=== PATIENT | female | born 1990 | race African-American/Black ===

== ENCOUNTER 2017-01-06 21:55 | Emergency (ER) | payer SELFPAY ==
[~2017-01-06] VITALS: Ht 167.6 cm; Wt 58.0 kg
[~2017-01-06 21:55] MED LIST: NAPR500 PO
[2017-01-06 22:01] VITALS: BP 104/79; PULSE 94; RESP 20; TEMP 98.9; O2SAT 100
[2017-01-06] MEDS ORDERED: NAPR500T PO (22:12)
[2017-01-06] MEDS ORDERED: ROBA500T PO (22:12)
[2017-01-06] MEDS ORDERED: ORPHENADRINE INJ 60 MG/2 ML AMP IM ONE (22:15)
[2017-01-06] MEDS ORDERED: KETOROLAC TROMETHAMINE 60 MG/2 ML (IM) VIAL IM ONE (22:15)
--- NOTE | 2017-01-06 22:18 | PD ---
HPI Chief Complaint: Pain: Acute or Chronic Time Seen by Provider: 22:12 Travel History International Travel<30 days: No Contact w/Intl Traveler<30days: No Traveled to known affect area: No History of Present Illness HPI 26-year-old female presents to the emergency department for evaluation of left upper back and left shoulder pain that began earlier this morning. The patient states that she was working overnight at [employer] and was doing lifting and pulling of shelves. States that at the end of her shift last night she noticed that she had pain in her left upper back radiating to her left shoulder and the left side of her neck. States that it feels "as though there is a hard knot." Pain is aggravated with movement of her left shoulder. Denies any alleviating factors. Denies weakness, numbness or tingling, traumatic injury. She is not taking anything for symptoms so far. Denies , last menstrual period 1 week ago. No other complaints. PFSH Past Medical History Medical History: Denies Significant Hx Diminished Hearing: No Immunizations Current: Yes Tetanus Vaccination: < 5 Years Influenza Vaccination: No ?: Not LMP: 1 WEEK : 0 Past Surgical History Surgical History: No Previous Surgery Social History Alcohol Use: Yes (RARE OCCASIONS) Tobacco Use: Yes (1/2 PK A DAY) Substance Use: No Allergies-Medications (Allergen,Severity, Reaction): Coded Allergies: No Known Allergies (Verified , 01/06/17) Reported Meds & Prescriptions Reported Meds & Active Scripts Active No Active Prescriptions or Reported Medications Review of Systems Except as stated in HPI: all other systems reviewed are Neg Physical Exam Narrative GENERAL: Well-nourished and well-developed pleasant patient in no acute distress who is nontoxic appearing. SKIN: Warm and dry. HEAD: Normocephalic and atraumatic. EYES: No injection, drainage, or hyphema noted. PERRLA. EOMI. ENT: No nasal drainage noted. Oropharynx is clear. NECK: Supple and the trachea is midline. CARDIOVASCULAR: Regular rate and rhythm. RESPIRATORY: Breath sounds are equal bilaterally with no accessory muscle use, wheezing, rhonchi, or crackles. MUSCULOSKELETAL: Patient has decreased range of motion in the left shoulder secondary to pain elicited in the left upper back, she is able to lift her left shoulder to 90. Radial pulses are 2+ bilaterally. Stranner strength is intact. Capillary refill is within normal limits. No obvious deformities, swelling, cyanosis, or ecchymosis is present throughout the upper and lower extremities. Patient has full range of motion in all other extremities without any signs of neurovascular compromise. BACK: Tenderness to palpation of left thoracic paraspinal muscles, tenderness just medial to the scapula. No obvious deformities, midline bony point tenderness, or crepitus noted throughout the thoracic and lumbar vertebrae. NEUROLOGICAL: Awake, alert, and oriented. Normal speech and gait. Cranial nerves are grossly intact. Data Data Last Documented VS Vital Signs Date Time Temp Pulse Resp B/P Pulse Ox O2 Delivery O2 Flow Rate FiO2 01/06/17 22:01 98.9 94 20 104/79 100 Orders Ketorolac Inj (Toradol Inj) (01/06/17 22:15) Orphenadrine Inj (Norflex Inj) (01/06/17 22:15) [facility] Medical Decision Making Medical Screen Exam Complete: Yes Emergency Medical Condition: Yes Differential Diagnosis Muscle strain versus muscle spasm versus sprain versus discogenic pain Narrative Course 26-year-old female presents to the emergency department for evaluation of left upper back and left shoulder pain after pulling and lifting shelves at work last night. Patient is afebrile, vital signs are stable. History and physical examination consistent with muscle strain and muscle spasm. No red flag signs or symptoms. Patient will be administered Toradol 60 mg IM and Norflex 60 mg IM. She'll be discharged with naproxen and Robaxin. Discussed supportive care. Advised follow-up with her PCP. Patient verbalizes understanding and agreement with treatment plan. Diagnosis Primary Impression: Muscle strain of left upper back Qualified Code: S29.012A - Muscle strain of left upper back, initial encounter Referrals: Primary Care Physician Patient Instructions: General Instructions, Muscle Strain (ED) Additional Instructions: Rest. Perform gentle stretches. Apply ice or heat to help alleviate symptoms. Take medications as prescribed with food and a full glass of water. Do not take Robaxin with alcohol or while driving. Follow-up with your Primary Care Physician. Return to the ED for any acute worsening of symptoms. Med/Other Pt SpecificInfo: Prescription(s) given Scripts Methocarbamol (Robaxin)500 Mg [id number] Mg PO QID 5 Days Ref 0 Prov:Young Edwards MD 5/4/17 Naproxen 500 Mg [id number] Mg PO BID 7 Days Ref 0 Prov:Young Edwards MD 01/06/17 Disposition: 01 DISCHARGE HOME Condition: Stable Chinyere Lundberg January 06, 2017 22:18
== END 2017-01-06 22:30 | disposition home or self-care (01) ==
LOC: PHEFT 21:55
DX: S29.012A Strain of muscle and tendon of back wall of thorax, initial encounter (principal); M25.512 Pain in left shoulder; F17.210 Nicotine dependence, cigarettes, uncomplicated; X50.0XXA Overexertion from strenuous movement or load, initial encounter; Y93.89 Activity, other specified; Y92.512 Supermarket, store or market as the place of occurrence of the external cause; Y99.0 Civilian activity done for income or pay
CPT/HCPCS: 96372; 99283; J1885; J2360

== ENCOUNTER 2017-10-08 11:35 | Emergency (ER) | payer SELFPAY ==
[~2017-10-08] VITALS: Ht 167.6 cm; Wt 57.0 kg
[~2017-10-08 11:35] MED LIST changes: -NAPR500 PO; +NAPR500T2 PO; +ROBA500T PO
[2017-10-08 11:39] VITALS: BP 124/61; PULSE 87; RESP 16; TEMP 98.9; O2SAT 98
[2017-10-08 11:50] VITALS: BP 116/72; PULSE 89; RESP 18; O2SAT 100
[2017-10-08] MEDS ORDERED: KETOROLAC TROMETHAMINE 60 MG/2 ML (IM) VIAL IM ONE (12:00)
[2017-10-08] MEDS ORDERED: TRAM50TA PO (12:01)
--- NOTE | 2017-10-08 12:08 | PD ---
HPI Chief Complaint: Syncope/Near-Syncope Time Seen by Provider: 11:53 Travel History International Travel<30 days: No Contact w/Intl Traveler<30days: No Traveled to known affect area: No History of Present Illness HPI The patient was seen and examined in the presence of the nurse. Patient has history of migraines. She complains of migraine headache. Has bilateral frontal throbbing. No thunderclap onset. No head injury or fever. She also complains of cough and congestion and runny nose. Denies fever symptoms severity is mild to moderate PFSH Past Medical History Medical History: Denies Significant Hx Diminished Hearing: No Immunizations Current: Yes Tetanus Vaccination: < 5 Years Influenza Vaccination: No ?: Not LMP: 09/15/17 : 0 Past Surgical History Surgical History: No Previous Surgery Social History Alcohol Use: Yes (RARE OCCASIONS) Tobacco Use: Yes (1/2 PK A DAY) Substance Use: No Allergies-Medications (Allergen,Severity, Reaction): Coded Allergies: No Known Allergies (Verified Adverse Reaction, Unknown, 10/08/17) Reported Meds & Prescriptions Reported Meds & Active Scripts Active Tramadol (Tramadol HCl) 50 Mg Tab 50 Mg PO Q6H PRN Review of Systems General / Constitutional: No: Fever HENT: Positive: Headaches Cardiovascular: No: Chest Pain or Discomfort Respiratory: No: Cough Gastrointestinal: No: Vomiting Physical Exam Narrative GENERAL: Well-nourished, well-developed patient in no apparent distress. SKIN: Focused skin assessment reveals no rash and nodules. Skin is Warm and dry. HEAD: Atraumatic. Normocephalic. EYES: Pupils equal and round. No scleral icterus. No injection or drainage. ENT: No nasal bleeding or discharge. Mucous membranes pink and moist. NECK: Trachea midline. No JVD. CARDIOVASCULAR: Regular rate and rhythm. No murmur appreciated. RESPIRATORY: No accessory muscle use. Clear to auscultation. Breath sounds equal bilaterally. GASTROINTESTINAL: Abdomen soft, non-tender, nondistended. Hepatic and splenic margins not palpable. MUSCULOSKELETAL: No obvious deformities. No clubbing. No cyanosis. No edema. NEUROLOGICAL: Awake and alert. No obvious cranial nerve deficits. Motor grossly within normal limits. Normal speech. PSYCHIATRIC: Appropriate mood and affect; insight and judgment normal. Data Data Last Documented VS Vital Signs Date Time Temp Pulse Resp B/P (MAP) Pulse Ox O2 Delivery O2 Flow Rate FiO2 10/08/17 11:50 89 18 116/72 (87) 100 Room Air 10/08/17 11:39 98.9 Orders Orders Ketorolac Inj (Toradol Inj) (10/08/17 12:00) [facility] Medical Decision Making Medical Screen Exam Complete: Yes Emergency Medical Condition: Yes Medical Record Reviewed: Yes Differential Diagnosis Migraine, flu syndrome, bronchitis Narrative Course I have reviewed the patient's electronic medical record. I gave her Toradol injection She is neurologically intact with no meningeal signs. Presentation not consistent with subarachnoid hemorrhage Wrote her 10 tramadol to use as needed Diagnosis Primary Impression: Migraine headache Qualified Codes: G43.009 - Migraine without aura, not intractable, without status migrainosus Additional Impression: Acute viral syndrome Additional Instructions: The patient was advised to follow up with their physician and return if they worsen. The patient was warned about potential sedation for the medications they will receive on prescription. Med/Other Pt SpecificInfo: Prescription(s) given Scripts Tramadol (Tramadol) 50 Mg Tab 50 MG PO Q6H Y for PAIN, #10 TAB 0 Refills Prov: Clay Cameron MD 10/08/17 Disposition: 01 DISCHARGE HOME Condition: Stable Clay Cameron MD Oct 08, 2017 12:08
== END 2017-10-08 12:55 | disposition home or self-care (01) ==
LOC: PHED 11:35
DX: G43.909 Migraine, unspecified, not intractable, without status migrainosus (principal); B34.9 Viral infection, unspecified; F17.200 Nicotine dependence, unspecified, uncomplicated
CPT/HCPCS: 96372; 99283; J1885

== ENCOUNTER 2017-11-13 21:21 | Observation (INO) | payer SELFPAY ==
[~2017-11-13] VITALS: Ht 162.6 cm; Wt 57.0 kg
[~2017-11-13 21:21] MED LIST changes: -NAPR500T2 PO; -ROBA500T PO; +TRAM50TA PO
[2017-11-13 21:25] VITALS: BP 106/69; PULSE 64; RESP 18; TEMP 97.6; O2SAT 99
[2017-11-13] MEDS ORDERED: SODIUM CHLOR 0.9% 1000 ML INJ 1,000 ML IV ONE (22:45)
[2017-11-13 23:23] LABS: BACTERIA, URINE RARE /hpf; BILIRUBIN, URINE NEG (NEG); BLOOD, URINE NEG (NEG); GLUCOSE,URINE NEG (NEG); KETONE, URINE NEG (NEG); MUCUS URINE MANY /lpf (OCC); NITRITE,URINE NEG (NEG); SQUAMOUS EPITHELIAL CELL URINE 30 /hpf (0-5); TRANSITIONAL EPI CELLS, URINE <1 /hpf; URINE COLOR YELLOW (YELLW/STRAW); URINE LEUKOCYTE ESTERASE MOD (NEG)
[2017-11-13 23:26] LABS: AUTOMATED NEUTROPHIL # 7.8 TH/MM3 (1.8-7.7); BASOPHIL # 0.1 TH/MM3 (0-0.2); BASOPHIL % 0.5 % (0.0-2.0); EOSINOPHIL # 0.1 TH/MM3 (0-0.4); EOSINOPHIL % 0.5 % (0.0-4.0); HEMATOCRIT 38.3 % (35.0-46.0); HEMOGLOBIN 12.7 GM/DL (11.6-15.3); LYMPHOCYTE # 2.2 TH/MM3 (1.0-4.8); MEAN CELL VOLUME 86.8 FL (80.0-100.0); MEAN CORPUSCULAR HEMOGLOBIN 28.7 PG (27.0-34.0); MEAN CORPUSCULAR HGB CONC 33.1 % (32.0-36.0); MEAN PLATELET VOLUME 8.8 FL (7.0-11.0); MONO % 7.5 % (0.0-8.0); MONOCYTE # 0.8 TH/MM3 (0-0.9); NEUT % 71.5 % (16.0-70.0); PLATELET COUNT 243 TH/MM3 (150-450); RED BLOOD COUNT 4.41 MIL/MM3 (4.00-5.30); RED CELL DISTRIBUTION WIDTH 14.9 % (11.6-17.2); WHITE BLOOD COUNT 10.9 TH/MM3 (4.0-11.0)
[2017-11-13 23:37] LABS: ALBUMIN 4.3 GM/DL (3.4-5.0); AST (GOT) 11 U/L (15-37); BICARBONATE 24.5 MEQ/L (21.0-32.0); BLOOD UREA NITROGEN 14 MG/DL (7-18); CALCIUM 9.5 MG/DL (8.5-10.1); CHLORIDE 104 MEQ/L (98-107); CREATININE 0.98 MG/DL (0.50-1.00); GLOMERULAR FILTRATION RATE 83 ML/MIN (>89); GLUCOSE,RANDOM 89 MG/DL (74-106); SODIUM (NA) 136 MEQ/L (136-145)
[2017-11-13 23:38] LABS: ALT (GPT) 18 U/L (10-53)
[2017-11-13 23:40] LABS: ALKALINE PHOSPHATASE 59 U/L (45-117); TOTAL BILIRUBIN ADULT 0.3 MG/DL (0.2-1.0); TOTAL PROTEIN 8.4 GM/DL (6.4-8.2)
--- NOTE | 2017-11-13 23:46 | RADRPT ---
EXAM DATE/TIME: 11/13/2017 23:27 [facility] COMPARISON: No previous studies available for comparison. INDICATIONS : Near syncopal episode today. Left sided chest pain. MEDICAL HISTORY : Current smoker. SURGICAL HISTORY : None. ENCOUNTER: Initial ACUITY: 1 day PAIN SCORE: 9/10 LOCATION: Left chest FINDINGS: A single view of the chest demonstrates the lungs to be symmetrically aerated without evidence of mas s, infiltrate or effusion. The cardiomediastinal contours are unremarkable. Osseous structures are intact. CONCLUSION: Normal examination. Derik Velasco Jr., MD on November 13, 2017 at 23:44 Board Certified Radiologist. This report was verified electronically.
--- NOTE | 2017-11-13 23:49 | PD ---
HPI Chief Complaint: Syncope/Near-Syncope Time Seen by Provider: 22:30 Travel History International Travel<30 days: No Contact w/Intl Traveler<30days: No Traveled to known affect area: No History of Present Illness HPI The patient is a 26 year old female who presents to the [facility] emergency department with a history of dizziness with lightheaded sensation that has been recurrent throughout the day. She denies any syncope today, however she reports having syncope in the past. When asked how many times, she reports "too many times to count". She denies every being evaluated for syncope previously. She reports having daily chest pain. She is unsure how long ago this began. She reports that she has had chest pain for as long as she can remember. She denies any SOB. She denies any nausea, vomiting, or diarrhea. A review of systems otherwise, the patient denies having any recent fevers, cough or congestion, neck pain, abdominal pain, urinary symptoms, or neurologic symptoms. LMP:11/02/16 [facility] Past Medical History Narrative Medical The patient's past medical history is significant for none. Medical History: Denies Significant Hx Diminished Hearing: No Immunizations Current: Yes Tetanus Vaccination: < 5 Years Influenza Vaccination: No ?: Not : 0 Past Surgical History Surgical History: No Previous Surgery Social History Alcohol Use: Yes (RARE OCCASIONS) Tobacco Use: Yes (1/2 PK A DAY) Substance Use: No Allergies-Medications (Allergen,Severity, Reaction): Coded Allergies: No Known Allergies (Verified Adverse Reaction, Unknown, 11/13/17) Reported Meds & Prescriptions Reported Meds & Active Scripts Active Tramadol (Tramadol HCl) 50 Mg Tab 50 Mg PO Q6H PRN Review of Systems Except as stated in HPI: all other systems reviewed are Neg General / Constitutional: No: Fever Eyes: No: Visual changes HENT: Positive: Lightheadedness, No: Headaches, Congestion, Neck Stiffness, Neck Pain Cardiovascular: Positive: Chest Pain or Discomfort, Syncope, No: Dyspnea on exertion Respiratory: No: Cough, Shortness of Breath Gastrointestinal: No: Abdominal Pain Genitourinary: No: Dysuria Musculoskeletal: No: Pain Skin: No Rash Neurologic: Positive: Syncope, No: Weakness, Focal Abnormalities, Change in Mentation, Slurred Speech, Sensory Disturbance Psychiatric: No: Depression Endocrine: No: Polydipsia Hematologic/Lymphatic: No: Easy Bruising Physical Exam Narrative General: The patient is a well-developed well-nourished female in no acute distress. Head and Neck exam: Head is normocephalic atraumatic. Eyes: EOMI, pupils are equal round and reactive to light. Nose: Midline septum with pink mucous membranes Mouth: Dentition unremarkable. Moist mucus membranes. Posterior oropharynx is not erythematous. No tonsillar hypertrophy. Uvula midline. Airway patent. Neck: No palpable lymphadenopathy. No nuchal rigidity. No thyromegaly. Cardiovascular: Regular rate and rhythm without murmurs, gallops, or rubs. No pulse deficit to the extremities on simultaneous auscultation and palpation of her radial artery. Lungs: Clear to auscultation bilaterally. No wheezes, rhonchi, or rales. Abdomen: Soft, without tenderness to palpation in all 4 quadrants of the abdomen. No guarding, rebound, or rigidity. Normal bowel sounds are audible. No tenderness on palpation of McBurney's point. Extremities: No clubbing, cyanosis, or edema. 2+ pulses in all 4 extremities. No calf tenderness on palpation. Back: No spinous process tenderness to palpation. No costovertebral angle tenderness to palpation. Neurologic Exam: Grossly nonfocal Skin Exam: No rash noted. Intact skin that is warm and dry. Data Data Last Documented VS Vital Signs Date Time Temp Pulse Resp B/P (MAP) Pulse Ox O2 Delivery O2 Flow Rate FiO2 11/13/17 21:25 97.6 64 18 106/69 (81) 99 Orders Orders Electrocardiogram (11/13/17 22:31) Complete Blood Count With Diff (11/13/17 22:31) Comprehensive Metabolic Panel (11/13/17 22:31) Urinalysis - C+S If Indicated (11/13/17 22:31) Magnesium (Mg) (11/13/17 22:31) Iv Access Insert/Monitor (11/13/17 22:31) Ecg Monitoring (11/13/17 22:31) Oximetry (11/13/17 22:31) Orthostatic Vital Signs (11/13/17 22:31) Ed Urine Pregnancytest Poc (11/13/17 22:31) Sodium Chlor 0.9% 1000 Ml Inj (Ns 1000 M (11/13/17 22:45) Creatine Kinase (Cpk) (11/13/17 23:00) Ckmb (Isoenzyme) Profile (11/13/17 23:00) Troponin I (11/13/17 23:00) B-Type Natriuretic Peptide (11/13/17 23:00) Prothrombin Time / Inr (Pt) (11/13/17 23:00) Act Partial Throm Time (Ptt) (11/13/17 23:00) Thyroid Stimulating Hormone (11/13/17 23:00) Ct Brain W/O Iv Contrast(Rout) (11/13/17 23:00) Chest, Single Ap (11/13/17 23:03) CKMB (11/13/17 23:05) CKMB% (11/13/17 23:05) Admit Order (Ed Use Only) (11/14/17 01:53) Labs Laboratory Tests Test 11/13/17 23:00 11/13/17 23:05 Urine Color YELLOW Urine Turbidity HAZY Urine pH 7.0 Urine Specific [place] 1.024 Urine Protein TRACE mg/dL Urine Glucose (UA) NEG mg/dL Urine Ketones NEG mg/dL Urine Occult Blood NEG Urine Nitrite NEG Urine Bilirubin NEG Urine Urobilinogen LESS THAN 2.0 MG/DL Urine Leukocyte Esterase MOD Urine RBC 4 /hpf Urine WBC 7 /hpf Urine Squamous Epithelial Cells 30 /hpf Urine Transitional Epithelial Cells <1 /hpf Urine Bacteria RARE /hpf Urine Granular Casts 3 /lpf Urine Mucus MANY /lpf Microscopic Urinalysis Comment CULT NOT INDICATED White Blood Count 10.9 TH/MM3 Red Blood Count 4.41 MIL/MM3 Hemoglobin 12.7 GM/DL Hematocrit 38.3 % Mean Corpuscular Volume 86.8 FL Mean Corpuscular Hemoglobin 28.7 PG Mean Corpuscular Hemoglobin Concent 33.1 % Red Cell Distribution Width 14.9 % Platelet Count 243 TH/MM3 Mean Platelet Volume 8.8 FL Neutrophils (%) (Auto) 71.5 % Lymphocytes (%) (Auto) 20.0 % Monocytes (%) (Auto) 7.5 % Eosinophils (%) (Auto) 0.5 % Basophils (%) (Auto) 0.5 % Neutrophils # (Auto) 7.8 TH/MM3 Lymphocytes # (Auto) 2.2 TH/MM3 Monocytes # (Auto) 0.8 TH/MM3 Eosinophils # (Auto) 0.1 TH/MM3 Basophils # (Auto) 0.1 TH/MM3 CBC Comment DIFF FINAL Differential Comment Blood Urea Nitrogen 14 MG/DL Creatinine 0.98 MG/DL Random Glucose 89 MG/DL Total Protein 8.4 GM/DL Albumin 4.3 GM/DL Calcium Level 9.5 MG/DL Magnesium Level 2.0 MG/DL Alkaline Phosphatase 59 U/L Aspartate Amino Transf (AST/SGOT) 11 U/L Alanine Aminotransferase (ALT/SGPT) 18 U/L Total Bilirubin 0.3 MG/DL Sodium Level 136 MEQ/L Potassium Level 4.1 MEQ/L Chloride Level 104 MEQ/L Carbon Dioxide Level 24.5 MEQ/L Anion Gap 8 MEQ/L Estimat Glomerular Filtration Rate 83 ML/MIN Total Creatine Kinase 110 U/L Creatine Kinase MB LESS THAN 0.5 NG/ML Troponin I LESS THAN 0.02 NG/ML B-Type Natriuretic Peptide LESS THAN 2 PG/ML Thyroid Stimulating Hormone 3rd Gen 1.500 uIU/ML MDM Medical Decision Making Medical Screen Exam Complete: Yes Emergency Medical Condition: Yes Medical Record Reviewed: Yes Interpretation(s) Last Impressions Chest X-Ray 11/13/[id number] Signed Impressions: Service Date/Time: Monday, November 13, 2017 23:27 - CONCLUSION: Normal examination. Derik Velasco Jr., MD Head CT [id number] Signed Impressions: Service Date/Time: Tuesday, November 14, 2017 00:10 - CONCLUSION: Normal examination. Derik Velasco Jr., MD Differential Diagnosis Acute coronary syndrome, versus vasovagal syncope, versus orthostasis, versus anxiety disorder, versus pneumothorax Narrative Course During the course of the patient's emergency department visit, the patient's history, examination, and differential diagnosis were reviewed with the patient. The patient was placed on a surveillance monitor with oximetry and frequent blood pressure monitoring. The patient had IV access obtained and blood work sent for analysis. The patient had an EKG done on arrival. The patient's EKG shows a sinus rhythm heart rate of 63, QRS duration 94 ms, QTC [address] segment elevation. A bedside test was done and negative. The patient was initially provided normal saline 1 L IV fluid bolus. Aspirin 324 mg p.o. 1. The patient's laboratory studies were reviewed and remarkable for a white count of 10.9, hemoglobin 12.7, platelets 243 with neutrophils 71.5. CMP is remarkable for GFR of 83, AST is 11, total protein 8.4, cardiac enzymes within normal limits, TSH 1.5, PT PTT within normal, urinalysis is unremarkable, culture not indicated Radiology studies were reviewed and remarkable for chest x-ray that shows no acute abnormality. A CT scan of the brain that shows no acute abnormality. Given the patient's recurrent chest pain for as long as she can remember with no prior workup, the patient was agreeable with the plan to proceed with admission to the chest pain center for rule out serial cardiac enzyme protocol followed by consideration of stress testing. The patient's results were discussed with the patient, including the plan of care. I explained that further testing and/ or monitoring is indicated based on the patient's history, examination, and/ or laboratory findings. Therefore, I recommended admission for additional evaluation. The patient expressed understanding and was agreeable with this plan. The patient was admitted to the hospital in stable condition and sent to a bed under the care of chest pain center. Diagnosis Primary Impression: Chest pain, rule out acute myocardial infarction Admitting Information Admitting Physician Requests: Gudelia Antonio MD Nov 13, 2017 23:49
--- NOTE | 2017-11-14 00:21 | RADRPT ---
EXAM DATE/TIME: 11/14/2017 00:10 [facility] COMPARISON: No previous studies available for comparison. INDICATIONS : Syncope. RADIATION DOSE: 39.41 CTDIvol (mGy) MEDICAL HISTORY : None SURGICAL HISTORY : None. ENCOUNTER: Initial ACUITY: 1 day PAIN SCALE: 0/10 LOCATION: cranial TECHNIQUE: Multiple contiguous axial images were obtained of the head. Using automated exposure control and adj ustment of the mA and/or kV according to patient size, radiation dose was kept as low as reasonably a chievable to obtain optimal diagnostic quality images. DICOM format image data is available electro nically for review and comparison. FINDINGS: CEREBRUM: The ventricles are normal for age. No evidence of midline shift, mass lesion, hemorrhage or acute in farction. No extra-axial fluid collections are seen. POSTERIOR FOSSA: The cerebellum and brainstem are intact. The 4th ventricle is midline. The cerebellopontine angle i s unremarkable. EXTRACRANIAL: The visualized portion of the orbits is intact. SKULL: The calvaria is intact. No evidence of skull fracture. CONCLUSION: Normal examination. Derik Velasco Jr., MD on November 14, 2017 at 0:19 Board Certified Radiologist. This report was verified electronically.
[2017-11-14 01:27] LABS: TROPONIN I LESS THAN 0.02 NG/ML (0.02-0.05)
[2017-11-14 02:00] VITALS: BP 118/64; PULSE 91; RESP 16; O2SAT 98
[2017-11-14] MEDS ORDERED: ASPIRIN 81 MG CHEW TAB CHEW ONE (02:45)
[2017-11-14 02:54] VITALS: RESP 16; O2SAT 100
[2017-11-14 03:14] LABS: INTERNATIONAL NORMALIZED RATIO 1.1 RATIO; PROTHROMBIN TIME - PATIENT 11.4 SEC (9.8-11.6)
[2017-11-14] MEDS ORDERED: SODIUM CHLORIDE 0.9% FLUSH 10 ML FLUSH IV FLUSH PRN (04:15)
[2017-11-14] MEDS ORDERED: ACETAMINOPHEN 500 MG CPLT PO PRN (04:15)
[2017-11-14 06:00] VITALS: BP 111/67; PULSE 85; RESP 14; O2SAT 99
[2017-11-14 06:22] LABS: TROPONIN I LESS THAN 0.02 NG/ML (0.02-0.05)
--- NOTE | 2017-11-14 08:15 | HHI.HP ---
HPI Primary Care Physician No Primary Care Physician Chief Complaint I passed out History of Present Illness This is a 26-year-old female that presents to ED with complaint of "I passed out." States this occurred while in the friend's room. States her friend was admitted to this hospital and she was visiting her when this occurred. The ER note states that she had no syncope and that she has felt dizzy and lightheaded throughout the day. Patient states to me that she has 3-4 syncopal episodes per month and has done so since she has been a kid. Has never sought treatment for this. She also has chest pains at least twice a week and has done so for the past 10 years. States the pain is on the right side. States that shooting pain that will last no longer than 5 minutes. Found nothing in particular to bring the symptoms on. Denies shortness of breath nausea or diaphoresis. Denies sensation of heart beating irregularly. States at times it is felt as if her heart was beating rapid after the syncopal episode but not prior to it. Denies headache. Denies numbness tingling weakness in extremities. Denies recent travel. Denies calf pain or swelling. Denies seizure activity. Denies recent illness. Denies . Denies illicit drug use. Admits to not drinking much water. States she may have some juice throughout the day but does not drink water that much. Review of Systems General: Patient denies fevers, chills, and recent travel HEENT: Patient denies headache, sore throat, difficulty swallowing. Cardiovascular: Has the chest discomfort as mentioned above. Denies sensation of heart beating rapidly or irregularly with her most recent syncopal episode however at times her heart rate seems to beating fast after the syncopal episode but has never checked the heart rate.. States she had a syncopal episode yesterday while visiting her friend at the hospital. Respiratory: Denies shortness of breath or inspirational chest discomfort. Denies coughing wheezing or hemoptysis. GI: Patient denies nausea, vomiting, diarrhea, abdominal pain, bloody stools. Musculoskeletal: Patient denies joint pain or edema. Denies calf pain or edema. Neurovascular: Patient denies numbness, tingling, weakness in extremities. Denies headache. At times feels dizzy. Denies seizure activity. Denies head injury with yesterday's episode. Endocrine: Denies polyuria and polydipsia. Hematologic: Denies easy bruising. Skin: Denies rash or itching. Past Family Social History Allergies: Coded Allergies: No Known Allergies (Verified Adverse Reaction, Unknown, 11/13/17) Past Medical History Tobacco abuse. Denies hypertension, hyperlipidemia, diabetes, and CAD. Past Surgical History Denies prior surgeries. Reported Medications Reported Meds & Active Scripts Active Tramadol (Tramadol HCl) 50 Mg Tab 50 Mg PO Q6H PRN Active Ordered Medications Current Medications Medications (Trade) Dose Ordered Sig/Bhavya Route Start Time Stop Time Status Last Admin (NS Flush) 2 ml UNSCH PRN IV FLUSH 11/14/17 04:15 (NS Flush) 2 ml BID IV FLUSH 11/14/17 09:00 (Tylenol) 500 mg Q4H PRN PO 11/14/17 04:15 Family History Denies family history of CAD. Social History Smokes 3-4 cigarettes per day for the last 7 years. Has had no alcohol for 3 years. Denies illicit drugs. Currently unemployed. Physical Exam Vital Signs Vital Signs Date Time Temp Pulse Resp B/P (MAP) Pulse Ox O2 Delivery O2 Flow Rate FiO2 11/14/17 06:00 85 14 111/67 (82) 99 Room Air 11/14/17 02:54 16 100 Room Air 11/14/17 02:00 91 16 118/64 (82) 98 11/13/17 21:25 97.6 64 18 106/69 (81) 99 Physical Exam GENERAL: Patient was examined in the presence of a female nurse sweat band sewer. This is a well-nourished, well-developed patient, in no apparent distress. Patient speaks in clear complete sentences. Patient is pleasant. HEENT: Head is atraumatic and normocephalic. Neck is supple without lymphadenopathy and trachea is midline. No JVD or carotid bruits. CARDIOVASCULAR: Regular rate and rhythm without murmurs, gallops, or rubs. RESPIRATORY: Clear to auscultation. Breath sounds equal bilaterally. No wheezes , rales, or rhonchi. Right side of chest wall is tender to palpate. No use of accessory muscles. GASTROINTESTINAL: Abdomen is nontender, nondistended. Abdomen soft. No obvious pulsatile mass or bruit. No CVA tenderness. Strong femoral pulses bilaterally. Normal bowel sounds in all quadrants. MUSCULOSKELETAL: Patient is moving upper and lower extremities freely. No calf tenderness or edema, no Homans sign. Strong pulses in upper and lower extremities. NEUROLOGICAL: Patient is alert and oriented. Cranial nerves 2-12 are grossly intact. No focal deficits and speech is clear. SKIN: No rash and turgor is normal. Laboratory Laboratory Tests Test 11/13/17 23:00 11/13/17 23:05 11/14/17 02:50 11/14/17 05:26 Urine Color YELLOW Urine Turbidity HAZY Urine pH 7.0 Urine Specific [place] 1.024 Urine Protein TRACE Urine Glucose (UA) NEG Urine Ketones NEG Urine Occult Blood NEG Urine Nitrite NEG Urine Bilirubin NEG Urine Urobilinogen LESS THAN 2.0 Urine Leukocyte Esterase MOD Urine RBC 4 Urine WBC 7 Urine Squamous Epithelial Cells 30 Urine Transitional Epithelial Cells <1 Urine Bacteria RARE Urine Granular Casts 3 Urine Mucus MANY Microscopic Urinalysis Comment CULT NOT INDICATED White Blood Count 10.9 Red Blood Count 4.41 Hemoglobin 12.7 Hematocrit 38.3 Mean Corpuscular Volume 86.8 Mean Corpuscular Hemoglobin 28.7 Mean Corpuscular Hemoglobin Concent 33.1 Red Cell Distribution Width 14.9 Platelet Count 243 Mean Platelet Volume 8.8 Neutrophils (%) (Auto) 71.5 Lymphocytes (%) (Auto) 20.0 Monocytes (%) (Auto) 7.5 Eosinophils (%) (Auto) 0.5 Basophils (%) (Auto) 0.5 Neutrophils # (Auto) 7.8 Lymphocytes # (Auto) 2.2 Monocytes # (Auto) 0.8 Eosinophils # (Auto) 0.1 Basophils # (Auto) 0.1 CBC Comment DIFF FINAL Differential Comment Blood Urea Nitrogen 14 Creatinine 0.98 Random Glucose 89 Total Protein 8.4 Albumin 4.3 Calcium Level 9.5 Magnesium Level 2.0 Alkaline Phosphatase 59 Aspartate Amino Transf (AST/SGOT) 11 Alanine Aminotransferase (ALT/SGPT) 18 Total Bilirubin 0.3 Sodium Level 136 Potassium Level 4.1 Chloride Level 104 Carbon Dioxide Level 24.5 Anion Gap 8 Estimat Glomerular Filtration Rate 83 Total Creatine Kinase 110 77 Creatine Kinase MB LESS THAN 0.5 Troponin I LESS THAN 0.02 LESS THAN 0.02 B-Type Natriuretic Peptide LESS THAN 2 Thyroid Stimulating Hormone 3rd Gen 1.500 Prothrombin Time 11.4 Prothromb Time International Ratio 1.1 Activated Partial Thromboplast Time 25.0 Result Diagram: 11/13/17230411/13/172304 Imaging Last 24 hours Impressions Chest X-Ray 11/13/172302 Signed Impressions: Service Date/Time: Monday, November 13, 2017 23:27 - CONCLUSION: Normal examination. Derik Velasco Jr., MD Head CT 11/13/172299 Signed Impressions: Service Date/Time: Tuesday, November 14, 2017 00:10 - CONCLUSION: Normal examination. Derik Velasco Jr., MD Course First 2 sets of EKGs are sinus rhythm without significant ST segment depressions or elevations. Caprini VTE Risk Assessment Caprini VTE Risk Assessment: No/Low Risk (score <= 1) Caprini Risk Assessment Model Point Value = 1 Point Value = 2 Point Value = 3 Point Value = 5 Age 41-60 Minor surgery BMI > 25 kg/m2 Swollen legs Varicose veins or History of unexplained or recurrent spontaneous Oral contraceptives or hormone replacement Sepsis (< 1 month) Serious lung disease, including pneumonia (< 1 month) Abnormal pulmonary function Acute myocardial infarction Congestive heart failure (< 1 month) History of inflammatory bowel disease Medical patient at bed rest Age 61-74 Arthroscopic surgery Major open surgery (> 45 min) Laparoscopic surgery (> 45 min) Malignancy Confined to bed (> 72 hours) Immobilizing plaster cast Central venous access Age >= 75 History of VTE Family history of VTE Factor V Leiden Prothrombin [id number] Lupus anticoagulant Anticardiolipin antibodies Elevated serum homocysteine Heparin-induced thrombocytopenia Other congenital or acquired thrombophilia Stroke (< 1 month) Elective arthroplasty Hip, pelvis, or leg fracture Acute spinal cord injury (< 1 month) Prophylaxis Regimen Total Risk Factor Score Risk Level Prophylaxis Regimen 0-1 Low Early ambulation 2 Moderate Order ONE of the following: *Sequential Compression Device (SCD) *Heparin 5000 units SQ BID 3-4 Higher Order ONE of the following medications: *Heparin 5000 units SQ TID *Enoxaparin/Lovenox 40 mg SQ daily (WT < 150 kg, CrCl > 30 mL/min) *Enoxaparin/Lovenox 30 mg SQ daily (WT < 150 kg, CrCl > 10-29 mL/min) *Enoxaparin/Lovenox 30 mg SQ BID (WT < 150 kg, CrCl > 30 mL/min) AND/OR *Sequential Compression Device (SCD) 5 or more Highest Order ONE of the following medications: *Heparin 5000 units SQ TID (Preferred with Epidurals) *Enoxaparin/Lovenox 40 mg SQ daily (WT < 150 kg, CrCl > 30 mL/min) *Enoxaparin/Lovenox 30 mg SQ daily (WT < 150 kg, CrCl > 10-29 mL/min) *Enoxaparin/Lovenox 30 mg SQ BID (WT < 150 kg, CrCl > 30 mL/min) AND *Sequential Compression Device (SCD) Assessment and Plan Assessment and Plan * Chest pain: Her symptoms are atypical. Right-sided and the area is tender to palpate. She has had first 2 sets of cardiac enzymes and EKGs for ruling out purposes and will be seen by Dr. Davison of cardiology in the chest pain center and at that time further plan will be made. Patient will need to have follow- up with PCP after being discharged. She should return to ED for interval issues. * Syncopal episode: Patient states she has had multiple syncopal episodes having on average a few per month for years. There have been no arrhythmias on monitor. Patient will need follow-up with PCP. * Tobacco abuse: Patient has been counseled on the importance of smoking cessation. Patient is stable at this time. She is agreeable to this plan. Rob Kohli Nov 14, 2017 08:14
[2017-11-14] MEDS ORDERED: SODIUM CHLORIDE 0.9% FLUSH 10 ML FLUSH IV FLUSH SCH (09:00)
[2017-11-14 09:30] VITALS: BP 102/59; PULSE 66; RESP 14; O2SAT 99
--- NOTE | 2017-11-14 10:04 | PD.CARD.PN ---
Subjective Subjective Remarks This 26-year-old patient was discussed with PA, personally seen and examined, and plan of care was discussed and agreed upon. Upon entering the room the patient's head was covered with a blanket, it was difficult to encourage her to remove the blanket and to speak in a voice loudly enough to be heard. She began by telling me that she does not see doctors. With some encouragement the history was obtained which is consistent with that reported. She has episodes of chest pain which is described as a sharp shooting pain sometimes associated with a gasping breath about 2 times a week. These pains last a minute or 2. She also "passes out" 2 or 3 times a month and has been doing this since she was about 13. Pertinent to note that she has never injured herself and she comments that she "catches myself" before hitting something. She has had no tongue biting and incontinence or other associated symptoms but does state that a couple times she has vomited either prior to or after the event. She believes the loss of consciousness is very brief in duration but does wake up on the floor. She cannot relate these episodes any precipitating factors. Usually she has an intense feeling of heat which then progresses to difficulty breathing and then her passing out episode. She has never seen a physician or sought medical attention for this prior to this time. Her chest pain is entirely atypical for cardiac disease. She also complains of some intermittent numbness and pain in both arms. She denies drug abuse and has tested negative Objective Medications Current Medications Medications (Trade) Dose Ordered Sig/Bhavya Route Start Time Stop Time Status Last Admin (NS Flush) 2 ml UNSCH PRN IV FLUSH 11/14/17 04:15 (NS Flush) 2 ml BID IV FLUSH 11/14/17 09:00 (Tylenol) 500 mg Q4H PRN PO 11/14/17 04:15 Vital Signs / I&O Vital Signs Date Time Temp Pulse Resp B/P (MAP) Pulse Ox O2 Delivery O2 Flow Rate FiO2 11/14/17 09:30 66 14 102/59 (73) 99 Room Air 11/14/17 06:00 85 14 111/67 (82) 99 Room Air 11/14/17 02:54 16 100 Room Air 11/14/17 02:00 91 16 118/64 (82) 98 3/11/18 21:25 97.6 64 18 106/69 (81) 99 I/O 11/13/17 11/13/17 11/13/17 11/14/17 11/14/17 11/14/17 07:00 15:00 23:00 07:00 15:00 23:00 Intake Total 1000 ml Balance 1000 ml Intake IV Total 1000 ml Physical Exam Patient is a thin black female heavily tattooed over entire body with tightly braided but it apparently kept hair Chest is clear to auscultation with no rales wheezes or rhonchi Cardiovascular PMI not displaced regular sinus rhythm no gallops rubs or murmurs Abdomen is soft nontender with no guarding or rebound Patient is relatively uncommunicative so difficult to assess her mental status. Cranial nerves appear to be intact and she has good use of all extremities but further testing not carried out. Laboratory Laboratory Tests Test 11/13/17 23:00 11/13/17 23:05 11/14/17 02:50 11/14/17 05:26 Urine Color YELLOW Urine Turbidity HAZY Urine pH 7.0 Urine Specific [place] 1.024 Urine Protein TRACE mg/dL Urine Glucose (UA) NEG mg/dL Urine Ketones NEG mg/dL Urine Occult Blood NEG Urine Nitrite NEG Urine Bilirubin NEG Urine Urobilinogen LESS THAN 2.0 MG/DL Urine Leukocyte Esterase MOD Urine RBC 4 /hpf Urine WBC 7 /hpf Urine Squamous Epithelial Cells 30 /hpf Urine Transitional Epithelial Cells <1 /hpf Urine Bacteria RARE /hpf Urine Granular Casts 3 /lpf Urine Mucus MANY /lpf Microscopic Urinalysis Comment CULT NOT INDICATED Urine Opiates Screen NEG Urine Barbiturates Screen NEG Urine Amphetamines Screen NEG Urine Benzodiazepines Screen NEG Urine Cocaine Screen NEG Urine Cannabinoids Screen NEG White Blood Count 10.9 TH/MM3 Red Blood Count 4.41 MIL/MM3 Hemoglobin 12.7 GM/DL Hematocrit 38.3 % Mean Corpuscular Volume 86.8 FL Mean Corpuscular Hemoglobin 28.7 PG Mean Corpuscular Hemoglobin Concent 33.1 % Red Cell Distribution Width 14.9 % Platelet Count 243 TH/MM3 Mean Platelet Volume 8.8 FL Neutrophils (%) (Auto) 71.5 % Lymphocytes (%) (Auto) 20.0 % Monocytes (%) (Auto) 7.5 % Eosinophils (%) (Auto) 0.5 % Basophils (%) (Auto) 0.5 % Neutrophils # (Auto) 7.8 TH/MM3 Lymphocytes # (Auto) 2.2 TH/MM3 Monocytes # (Auto) 0.8 TH/MM3 Eosinophils # (Auto) 0.1 TH/MM3 Basophils # (Auto) 0.1 TH/MM3 CBC Comment DIFF FINAL Differential Comment Blood Urea Nitrogen 14 MG/DL Creatinine 0.98 MG/DL Random Glucose 89 MG/DL Total Protein 8.4 GM/DL Albumin 4.3 GM/DL Calcium Level 9.5 MG/DL Magnesium Level 2.0 MG/DL Alkaline Phosphatase 59 U/L Aspartate Amino Transf (AST/SGOT) 11 U/L Alanine Aminotransferase (ALT/SGPT) 18 U/L Total Bilirubin 0.3 MG/DL Sodium Level 136 MEQ/L Potassium Level 4.1 MEQ/L Chloride Level 104 MEQ/L Carbon Dioxide Level 24.5 MEQ/L Anion Gap 8 MEQ/L Estimat Glomerular Filtration Rate 83 ML/MIN Total Creatine Kinase 110 U/L 77 U/L Creatine Kinase MB LESS THAN 0.5 NG/ML Troponin I LESS THAN 0.02 NG/ML LESS THAN 0.02 NG/ML B-Type Natriuretic Peptide LESS THAN 2 PG/ML Thyroid Stimulating Hormone 3rd Gen 1.500 uIU/ML Prothrombin Time 11.4 SEC Prothromb Time International Ratio 1.1 RATIO Activated Partial Thromboplast Time 25.0 SEC Imaging Last 24 hours Impressions Chest X-Ray 11/13/172302 Signed Impressions: Service Date/Time: Monday, November 13, 2017 23:27 - CONCLUSION: Normal examination. Derik Velasco Jr., MD Head CT 11/13/172299 Signed Impressions: Service Date/Time: Tuesday, November 14, 2017 00:10 - CONCLUSION: Normal examination. Derik Velasco Jr., MD Assessment and Plan Assessment and Plan Patient is ruled out for ACS and current complaints of chest pain are clearly not consistent with ischemic heart disease. In view of her history of syncope further testing will not be carried out at this time. She is discharged to follow-up with outpatient primary care physician with the explanation that she needs to have someone evaluate her episodes of passing out so that these do not result in serious harm to her in the future. She states on several occasions however that she does not see doctors. These episodes did not appear to be orthostatic but could represent a form of vasovagal. Might also be psychiatric in origin. She is strongly encouraged to follow-up. This plan was discussed with PA and the patient will be discharged with emphasis for the need of follow-up. Discussed Condition With Discussed with PA and with patient Grant Davison MD Nov 14, 2017 10:04
--- NOTE | 2017-11-14 10:14 | EKG ---
Date Performed: 11/14/2017 Time Performed: 06:03:48 PTAGE: 26 years EKG: Sinus rhythm WITH SINUS ARRHYTHMIA NORMAL ECG No change PREVIOUS TRACING : 11/13/2017 23.35 DOCTOR: Grant Davison Interpretating Date/Time 11/14/2017 10:13:09
--- NOTE | 2017-11-14 10:15 | EKG ---
Date Performed: 11/13/2017 Time Performed: 23:35:07 PTAGE: 26 years EKG: Sinus rhythm NORMAL ECG No change PREVIOUS TRACING : 04/23/2012 14.35 DOCTOR: Grant Davison Interpretating Date/Time 11/14/2017 10:14:04
--- NOTE | 2017-11-14 10:21 | HHI.DCPOC ---
Discharge Care Plan Diagnosis: (1) Chest pain, atypical (2) Tobacco abuse Goals to Promote Your Health * To prevent worsening of your condition and complications * To maintain your health at the optimal level Directions to Meet Your Goals Take your medications as prescribed Follow your dietary instruction Follow activity as directed Keep your appointments as scheduled Take your immunizations and boosters as scheduled If your symptoms worsen call your PCP, if no PCP go to Urgent Care Center or Emergency Room Smoking is Dangerous to Your Health. Avoid second hand smoke Call the 24-hour hour crisis hotline for domestic abuse at Rob Kohli Nov 14, 2017 10:21
== END 2017-11-14 12:04 | disposition home or self-care (01) ==
LOC: NEPE 21:21 → NEDA 11-14 01:54 → NEDH 11-14 06:05
PROVIDERS: ADMIT Internal Medicine Interventional Cardiology; ATTEND Internal Medicine Interventional Cardiology
DX: R07.89 Other chest pain (principal); R55 Syncope and collapse; R42 Dizziness and giddiness; R20.0 Anesthesia of skin; M79.601 Pain in right arm; M79.602 Pain in left arm; I49.9 Cardiac arrhythmia, unspecified; F17.210 Nicotine dependence, cigarettes, uncomplicated
CPT/HCPCS: 70450; 71045; 80053; 80307; 81001; 82550; 82552; 83735; 83880; 84443; 84484; 84703; 85025; 85610; 85730; 93005; 99285; G0378; J7030